=== PATIENT | male | born 1975 | race Caucasian/White ===

== ENCOUNTER 2021-08-02 11:07 | Emergency (ER) | payer OTHER ==
[2021-08-02 11:14] VITALS: BP 128/81; PULSE 85; TEMP 98.1; BMI 25.4
[2021-08-02] MEDS ORDERED: KETOROLAC TROMETHAMINE 60 MG/2 ML VIAL IM ONE (11:27)
[2021-08-02] MEDS ORDERED: KETOROLAC TROMETHAMINE 60 MG/2 ML VIAL ONE (11:30)
== END 2021-08-02 12:12 | disposition home or self-care (01) ==
LOC: JERFT 11:07
PROC: 3E0233Z Introduction of Anti-inflammatory into Muscle, Percutaneous Approach (ICD-10-PCS; principal; 2021-08-02)
DX: R07.0 Pain in throat (principal)
CPT/HCPCS: 87070; 99284-25